=== PATIENT | female | born 1950 | race African-American/Black ===

== ENCOUNTER 2021-06-30 13:55 | Inpatient (IN) | payer MEDICAID, MEDICARE ==
[~2021-06-30] VITALS: Ht 167.6 cm; Wt 78.9 kg
[~2021-06-30 13:55] MED LIST: ACET1TAB12 PO; INSU3INS6 SUBCUT
[2021-06-30 17:17] LABS: BASOPHILS % 0.4 % (0.0-2.0); EOSINOPHILS % 0.7 % (0.0-5.0); HEMATOCRIT. 27.1 % (36.0-48.0); HEMOGLOBIN. 9.1 g/dL (12.0-16.0); LYMPHOCYTES % 33.4 % (20.0-50.0); MEAN CORPUSCULAR HEMOGLOBIN 30.5 pg (28.0-32.0); MEAN CORPUSCULAR VOLUME 90.9 fL (81.0-99.0); MEAN PLATELET VOLUME 7.7 fl (7.4-10.4); MONOCYTES % 6.9 % (2.0-8.0); NEUTROPHILS % 58.6 % (40.0-76.0); PLATELET 208 x1000/uL (130-400); RED BLOOD CELL COUNT 2.98 mill/uL (4.2-5.4); RED CELL DISTRIBUTION WIDTH 13.9 % (11.6-14.6)
[2021-06-30 17:23] LABS: CHLORIDE 115 mEq/L (98-107)
[2021-06-30] MEDS ORDERED: ASPIRIN 325MG EC TABLET PO ONE (20:30)
[2021-06-30] MEDS ORDERED: MAGNESIUM/ALUMINUM HYDROXIDE/SIMETHICONE 30ML UDC PO PRN (23:45)
[2021-06-30] MEDS ORDERED: NALOXONE HCL 0.4MG/ML VIAL IV PRN (23:45)
[2021-06-30] MEDS ORDERED: LORAZEPAM 2MG/ML CPJ IV PRN (23:45)
[2021-06-30] MEDS ORDERED: NA PHOS,M-B/NA PHOS,DI-BA ENEMA 118ML PR PRN (23:45)
[2021-06-30] MEDS ORDERED: DIPHENHYDRAMINE 50MG/ML VIAL IV PRN (23:45)
[2021-06-30] MEDS ORDERED: GUAIFENESIN 200MG/10ML SUGAR FREE UDC PO PRN (23:45)
[2021-06-30] MEDS ORDERED: DOCUSATE SODIUM 100MG CAPSULE PO PRN (23:45)
[2021-06-30] MEDS ORDERED: IPRATROPIUM/ALBUTEROL 0.5-3(2.5)MG/3ML NEB NEB PRN (23:45)
[2021-06-30] MEDS ORDERED: MORPHINE SULFATE 2 MG/ML CPJ (NOT FOR IM USE) IV PRN (23:45)
[2021-07-01] MEDS: CLONIDINE 0.1MG TABLET PO PRN ×2 (00:06→06:39)
[2021-07-01] MEDS: HYDROCODONE/ACETAMINOPHEN 5/325MG TABLET PO PRN ×2 (00:06→00:15)
[2021-07-01] MEDS: ONDANSETRON HCL 4MG/2ML INJ IV PRN (00:06)
[2021-07-01 04:52] LABS: BASOPHILS % 1.2 % (0.0-2.0); EOSINOPHILS % 0.8 % (0.0-5.0); HEMATOCRIT. 27.6 % (36.0-48.0); HEMOGLOBIN. 9.2 g/dL (12.0-16.0); LYMPHOCYTES % 29.9 % (20.0-50.0); MEAN CORPUSCULAR HEMOGLOBIN 30.6 pg (28.0-32.0); MEAN CORPUSCULAR VOLUME 91.5 fL (81.0-99.0); NEUTROPHILS % 62.1 % (40.0-76.0); RED BLOOD CELL COUNT 3.02 mill/uL (4.2-5.4); RED CELL DISTRIBUTION WIDTH 13.8 % (11.6-14.6)
[2021-07-01 05:05] LABS: CHLORIDE 111 mEq/L (98-107)
[2021-07-01 05:12] LABS: LDL CHOLESTEROL 61 mg/dL (5-100)
[2021-07-01 05:13] LABS: HDL CHOLESTEROL 54 mg/dL (40-59)
[2021-07-01 05:33] LABS: MEAN PLATELET VOLUME 9.5 fl (7.4-10.4); PLATELET 192 x1000/uL (130-400)
[2021-07-01] MEDS: LOSARTAN POTASSIUM 50 MG TABLET PO SCH (10:00)
[2021-07-01] MEDS ORDERED: DEXTROSE 50% WATER 50ML SYRINGE IV PRN (10:15)
[2021-07-01] MEDS: FUROSEMIDE 40MG/4ML VIAL IVP SCH (12:38)
[2021-07-01] MEDS: ASPIRIN 81MG EC TABLET PO SCH (12:38)
[2021-07-01] MEDS: ENOXAPARIN 40MG/0.4ML SYR SUBCUT SCH (12:39)
[2021-07-01] MEDS: BLOOD SUGAR DIAGNOSTIC STRIP TEST SCH ×3 (12:40→21:48)
[2021-07-01 13:05] VITALS: BP 161/67
[2021-07-01] MEDS: INSULIN LISPRO 100 UNITS/ML SUBCUT SCH ×3 (14:13→21:50)
[2021-07-01 20:00] VITALS: BP 122/55
[2021-07-02] VITALS: BP 139/75
[2021-07-02 04:00] VITALS: BP 101/67
[2021-07-02] MEDS: BLOOD SUGAR DIAGNOSTIC STRIP TEST SCH ×4 (06:23→21:00)
[2021-07-02 07:09] LABS: BASOPHILS % 1.4 % (0.0-2.0); HEMATOCRIT. 29.4 % (36.0-48.0); HEMOGLOBIN. 9.9 g/dL (12.0-16.0); LYMPHOCYTES % 29.2 % (20.0-50.0); MEAN CORPUSCULAR HEMOGLOBIN 29.9 pg (28.0-32.0); MEAN CORPUSCULAR VOLUME 89.3 fL (81.0-99.0); MEAN PLATELET VOLUME 9.1 fl (7.4-10.4); MONOCYTES % 5.4 % (2.0-8.0); PLATELET 218 x1000/uL (130-400); RED CELL DISTRIBUTION WIDTH 13.5 % (11.6-14.6)
[2021-07-02 08:01] LABS: CHLORIDE 108 mEq/L (98-107)
[2021-07-02 08:10] LABS: CREATINE KINASE 90 IU/L (26-192)
[2021-07-02 08:12] LABS: CREATINE KINASE MB FRACTION 1.7 ng/mL (0.5-3.6)
[2021-07-02] MEDS ORDERED: REGADENOSON 0.4 MG/5 ML IV NR (08:30)
[2021-07-02] MEDS: FUROSEMIDE 40MG/4ML VIAL IVP SCH (10:47)
[2021-07-02] MEDS: ASPIRIN 81MG EC TABLET PO SCH (10:47)
[2021-07-02] MEDS: ENOXAPARIN 40MG/0.4ML SYR SUBCUT SCH (10:49)
[2021-07-02] MEDS: LOSARTAN POTASSIUM 50 MG TABLET PO SCH (11:00)
[2021-07-02] MEDS: INSULIN LISPRO 100 UNITS/ML SUBCUT SCH ×4 (11:36→21:00)
[2021-07-02 12:00] VITALS: BP 137/68
[2021-07-02 16:00] VITALS: BP 132/66
[2021-07-02] MEDS ORDERED: MORPHINE SULFATE 2 MG/ML CPJ (NOT FOR IM USE) IV NR (16:30)
[2021-07-02 20:00] VITALS: BP 156/86
[2021-07-03 00:53] VITALS: BP 157/69
[2021-07-03 04:00] VITALS: BP 131/89
[2021-07-03] MEDS: BLOOD SUGAR DIAGNOSTIC STRIP TEST SCH ×4 (06:42→21:16)
[2021-07-03 08:00] VITALS: BP 158/62
[2021-07-03] MEDS: ASPIRIN 81MG EC TABLET PO SCH (09:03)
[2021-07-03] MEDS: LOSARTAN POTASSIUM 50 MG TABLET PO SCH (09:03)
[2021-07-03] MEDS: FUROSEMIDE 40MG/4ML VIAL IVP SCH (09:03)
[2021-07-03] MEDS: INSULIN LISPRO 100 UNITS/ML SUBCUT SCH ×4 (09:05→20:59)
[2021-07-03] MEDS: ENOXAPARIN 40MG/0.4ML SYR SUBCUT SCH (11:27)
[2021-07-03 16:00] VITALS: BP 150/80
[2021-07-03 20:00] VITALS: BP 125/65
[2021-07-04] VITALS (7 sets, daily range): BP systolic 104–144; BP diastolic 54–76
[2021-07-04] MEDS: BLOOD SUGAR DIAGNOSTIC STRIP TEST SCH ×4 (06:50→21:42)
[2021-07-04] MEDS: FUROSEMIDE 40MG/4ML VIAL IVP SCH (08:52)
[2021-07-04] MEDS: ASPIRIN 81MG EC TABLET PO SCH (08:53)
[2021-07-04] MEDS: LOSARTAN POTASSIUM 50 MG TABLET PO SCH ×2 (08:54→09:00)
[2021-07-04] MEDS: INSULIN LISPRO 100 UNITS/ML SUBCUT SCH ×4 (08:55→21:00)
[2021-07-04] MEDS: ENOXAPARIN 40MG/0.4ML SYR SUBCUT SCH (11:09)
[2021-07-04] MEDS ORDERED: POLYVINYL ALCOHOL OPHTH DROPS 15ML BOTHEYE PRN (12:30)
[2021-07-04] MEDS: METOPROLOL TARTRATE 25MG TABLET PO SCH (21:00)
[2021-07-05] VITALS (7 sets, daily range): BP systolic 135–174; BP diastolic 40–85
[2021-07-05] MEDS ORDERED: POLY15DR40 EACHEYE (00:10)
[2021-07-05] MEDS: BLOOD SUGAR DIAGNOSTIC STRIP TEST SCH ×4 (06:46→20:54)
[2021-07-05] MEDS: LOSARTAN POTASSIUM 50 MG TABLET PO SCH (09:00)
[2021-07-05] MEDS: FUROSEMIDE 40MG/4ML VIAL IVP SCH (09:46)
[2021-07-05] MEDS: ASPIRIN 81MG EC TABLET PO SCH (09:46)
[2021-07-05] MEDS: METOPROLOL TARTRATE 25MG TABLET PO SCH ×2 (09:47→20:58)
[2021-07-05] MEDS: INSULIN LISPRO 100 UNITS/ML SUBCUT SCH ×4 (09:48→20:54)
[2021-07-05] MEDS: ENOXAPARIN 40MG/0.4ML SYR SUBCUT SCH (10:30)
[2021-07-05] MEDS ORDERED: POLYVINYL ALCOHOL OPHTH DROPS 15ML BOTHEYE PRN (20:45)
[2021-07-05] MEDS ORDERED: TETRACAINE 0.5% OPHTH DROPS 4ML BOTHEYE PRN (20:45)
[2021-07-05] MEDS ORDERED: HALOPERIDOL LACTATE 5MG/ML VIAL IM PRN (20:45)
[2021-07-05] MEDS: GABAPENTIN 300MG CAPSULE PO SCH (20:58)
[2021-07-06 04:00] VITALS: BP 152/80
[2021-07-06] MEDS: GABAPENTIN 300MG CAPSULE PO SCH ×3 (06:37→21:59)
[2021-07-06] MEDS: BLOOD SUGAR DIAGNOSTIC STRIP TEST SCH ×4 (06:43→21:00)
[2021-07-06 08:00] VITALS: BP 157/55
[2021-07-06] MEDS: LOSARTAN POTASSIUM 50 MG TABLET PO SCH ×2 (09:00→09:45)
[2021-07-06] MEDS: ASPIRIN 81MG EC TABLET PO SCH (09:44)
[2021-07-06] MEDS: FUROSEMIDE 40MG/4ML VIAL IVP SCH (09:44)
[2021-07-06] MEDS: METOPROLOL TARTRATE 25MG TABLET PO SCH ×2 (09:45→21:58)
[2021-07-06] MEDS: ENOXAPARIN 40MG/0.4ML SYR SUBCUT SCH (09:45)
[2021-07-06] MEDS: INSULIN LISPRO 100 UNITS/ML SUBCUT SCH ×4 (09:46→21:00)
[2021-07-06 12:00] VITALS: BP 180/75
[2021-07-06] MEDS: ONDANSETRON HCL 4MG/2ML INJ IV PRN (13:14)
[2021-07-06 16:00] VITALS: BP 143/71
[2021-07-06 20:00] VITALS: BP 126/55
[2021-07-06] MEDS: LAMOTRIGINE 25MG TABLET PO SCH (21:59)
[2021-07-07] VITALS: BP 148/64
[2021-07-07 04:00] VITALS: BP 147/63
[2021-07-07] MEDS: GABAPENTIN 300MG CAPSULE PO SCH ×4 (05:38→21:17)
[2021-07-07] MEDS: BLOOD SUGAR DIAGNOSTIC STRIP TEST SCH ×4 (05:38→21:12)
[2021-07-07 08:11] VITALS: BP 105/62
[2021-07-07] MEDS: FUROSEMIDE 40MG/4ML VIAL IVP SCH (09:28)
[2021-07-07] MEDS: INSULIN LISPRO 100 UNITS/ML SUBCUT SCH ×4 (09:28→21:13)
[2021-07-07] MEDS: LAMOTRIGINE 25MG TABLET PO SCH ×2 (09:29→21:00)
[2021-07-07] MEDS: ASPIRIN 81MG EC TABLET PO SCH (09:29)
[2021-07-07] MEDS: LOSARTAN POTASSIUM 50 MG TABLET PO SCH (09:29)
[2021-07-07] MEDS: METOPROLOL TARTRATE 25MG TABLET PO SCH ×2 (09:29→21:12)
[2021-07-07] MEDS: ACETAMINOPHEN 325MG TABLET PO PRN ×2 (09:49→09:51)
[2021-07-07 12:00] VITALS: BP 138/60
[2021-07-07] MEDS: ENOXAPARIN 40MG/0.4ML SYR SUBCUT SCH (13:19)
[2021-07-07 16:00] VITALS: BP 119/63
[2021-07-07 20:00] VITALS: BP 125/69
[2021-07-08] VITALS: BP 158/50
[2021-07-08 04:00] VITALS: BP 170/73
[2021-07-08] MEDS: GABAPENTIN 300MG CAPSULE PO SCH (06:00)
[2021-07-08] MEDS: BLOOD SUGAR DIAGNOSTIC STRIP TEST SCH ×4 (07:20→21:30)
[2021-07-08] MEDS: INSULIN LISPRO 100 UNITS/ML SUBCUT SCH (07:50)
[2021-07-08 08:00] VITALS: BP 180/84
[2021-07-08] MEDS: LOSARTAN POTASSIUM 50 MG TABLET PO SCH (09:00)
[2021-07-08] MEDS: LAMOTRIGINE 25MG TABLET PO SCH (09:00)
[2021-07-08] MEDS: ASPIRIN 81MG EC TABLET PO SCH (10:20)
[2021-07-08] MEDS: FUROSEMIDE 40MG/4ML VIAL IVP SCH (10:20)
[2021-07-08] MEDS: METOPROLOL TARTRATE 25MG TABLET PO SCH ×2 (10:21→21:30)
[2021-07-08] MEDS: ENOXAPARIN 40MG/0.4ML SYR SUBCUT SCH (10:30)
[2021-07-08 12:00] VITALS: BP 155/52
[2021-07-08] MEDS: FUROSEMIDE 40MG TABLET PO SCH (12:09)
[2021-07-08] MEDS ORDERED: INSULIN GLARGINE UD 100 UNITS/ML SYR SUBCUT NR (14:00)
[2021-07-08 16:00] VITALS: BP 117/45
[2021-07-08] MEDS: METFORMIN HCL 500MG TABLET PO SCH (17:39)
[2021-07-08 20:00] VITALS: BP 139/45
[2021-07-09] VITALS: BP 142/46
[2021-07-09 04:00] VITALS: BP 139/52
[2021-07-09] MEDS: BLOOD SUGAR DIAGNOSTIC STRIP TEST SCH ×4 (06:37→21:00)
[2021-07-09 08:00] VITALS: BP 114/66
[2021-07-09] MEDS: METFORMIN HCL 500MG TABLET PO SCH ×2 (08:27→18:09)
[2021-07-09] MEDS: ASPIRIN 81MG EC TABLET PO SCH (08:28)
[2021-07-09] MEDS: METOPROLOL TARTRATE 25MG TABLET PO SCH ×2 (08:28→21:46)
[2021-07-09] MEDS: FUROSEMIDE 40MG TABLET PO SCH (08:28)
[2021-07-09] MEDS ORDERED: INSULIN GLARGINE UD 100 UNITS/ML SYR SUBCUT SCH (10:00)
[2021-07-09] MEDS: ENOXAPARIN 40MG/0.4ML SYR SUBCUT SCH (10:37)
[2021-07-09 12:00] VITALS: BP 141/42
[2021-07-09 13:07] LABS: BASOPHILS % 1.3 % (0.0-2.0); EOSINOPHILS % 1.4 % (0.0-5.0); HEMATOCRIT. 28.4 % (36.0-48.0); HEMOGLOBIN. 9.5 g/dL (12.0-16.0); MEAN CORPUSCULAR HEMOGLOBIN 30.2 pg (28.0-32.0); MEAN CORPUSCULAR VOLUME 90.1 fL (81.0-99.0); MEAN PLATELET VOLUME 9.3 fl (7.4-10.4); MONOCYTES % 6.6 % (2.0-8.0); NEUTROPHILS % 50.7 % (40.0-76.0); PLATELET 185 x1000/uL (130-400); RED BLOOD CELL COUNT 3.15 mill/uL (4.2-5.4); RED CELL DISTRIBUTION WIDTH 13.5 % (11.6-14.6)
[2021-07-09 16:00] VITALS: BP 127/50
[2021-07-09 20:00] VITALS: BP 128/51
[2021-07-10] VITALS: BP 132/57
== END 2021-07-10 03:35 | disposition left against medical advice (07) | DRG 205 ==
LOC: ER 13:55 → MICUSO 19:24 → 6WST 07-01 11:06
PROVIDERS: ADMIT Internal Medicine; ATTEND Internal Medicine
DX: M94.0 Chondrocostal junction syndrome [Tietze] (principal); G93.41 Metabolic encephalopathy; I24.9 Acute ischemic heart disease, unspecified; I42.9 Cardiomyopathy, unspecified; I25.10 Atherosclerotic heart disease of native coronary artery without angina pectoris; I11.0 Hypertensive heart disease with heart failure; I50.9 Heart failure, unspecified; D64.9 Anemia, unspecified; E11.36 Type 2 diabetes mellitus with diabetic cataract; E11.65 Type 2 diabetes mellitus with hyperglycemia; E78.5 Hyperlipidemia, unspecified; Z20.822 Contact with and (suspected) exposure to COVID-19; F22 Delusional disorders; Z53.29 Procedure and treatment not carried out because of patient's decision for other reasons; I25.2 Old myocardial infarction; Z86.73 Personal history of transient ischemic attack (TIA), and cerebral infarction without residual deficits; Z82.49 Family history of ischemic heart disease and other diseases of the circulatory system; H54.8 Legal blindness, as defined in USA
CPT/HCPCS: 36415; 71045; 80048; 80053; 80061; 82550; 82553; 82962; 83036; 83880; 84439; 84443; 84484; 85025; 85379; 87426; 93005; 93306; 93970; 97162; 97166; 99285; C1893; J1650; J1815; J1940; J2405